=== PATIENT | male | born 1990 | race Caucasian/White ===

== ENCOUNTER 2018-01-21 16:54 | Emergency (ER) | payer OTHER ==
[2018-01-21] MEDS: morphine 4 MG/ML VIAL IV (17:00)
[2018-01-21] MEDS: ONDANSETRON 4 MG INJ IV (17:00)
[2018-01-21] MEDS: SOD CHLORIDE 0.9% 1,000 ML IV (17:01)
[2018-01-21] MEDS: PROPOFOL 200 MG INJ IV ×2 (17:50→18:00)
[2018-01-21] MEDS: KETOROLAC 30 MG INJ IV (19:01)
== END 2018-01-21 19:27 | disposition home or self-care (01) ==
LOC: E/R 16:54
DX: S43.004A Unspecified dislocation of right shoulder joint, initial encounter (principal); R40.2142 Coma scale, eyes open, spontaneous, at arrival to emergency department; R40.2362 Coma scale, best motor response, obeys commands, at arrival to emergency department; X58.XXXA Exposure to other specified factors, initial encounter; Y92.9 Unspecified place or not applicable
CPT/HCPCS: 23650; 73030-RT; 94770; 96374; 96375; 99285-25